=== PATIENT | female | born 1930 | race Caucasian/White ===

== ENCOUNTER 2019-06-04 11:51 | Inpatient (IN) | payer MEDICARE ==
[~2019-06-04] VITALS: Ht 165.1 cm; Wt 69.3 kg
[~2019-06-04 11:51] MED LIST: ASPI325 PO; ATEN25 PO; ATEN50 PO; Aspir 8181 MG PO; BETH25 PO; CALCAVITD PO; CALCIUM PO; CIPR250 PO; DICL75ER PO; FISH1000 PO; FURO40 PO; LOVA20 PO; OMEP20ER PO; OXYACE5T PO; POTA10T PO; POTCHL10ER PO; PROM25 PO; SULAR PO; VIT D PO
[2019-06-04 12:47] LABS: BASOPHILS ABSOLUTE AUTO 0.03 K/mm3 (0.00-0.23); BASOPHILS PERCENT AUTO 0 % (0-2); EOSINOPHILS ABSOLUTE AUTO 0.12 K/mm3 (0.00-0.68); EOSINOPHILS PERCENT AUTO 2 % (0-6); Hematocrit 33.1 % (33.0-51.0); Hemoglobin 11.2 g/dL (11.5-16.0); IMMATURE GRAN ABSOLUTE AUTO 0.05 K/mm3 (0.00-0.10); IMMATURE GRAN PERCENT AUTO 1 % (0-1); LYMPHOCYTES ABSOLUTE AUTO 1.51 K/mm3 (0.84-5.20); LYMPHOCYTES PERCENT AUTO 22 % (21-46); MONOCYTES ABSOLUTE AUTO 0.68 K/mm3 (0.16-1.47); MONOCYTES PERCENT AUTO 10 % (4-13); Mean Corpuscular HGB 33.6 pg (26.0-34.0); Mean Corpuscular HGB Conc 33.8 g/dL (31.5-36.5); Mean Corpuscular Volume 99 fL (80-100); Mean Platelet Volume 10.4 fL (9.1-12.4); NEUTROPHILS ABSOLUTE AUTO 4.57 K/mm3 (1.96-9.15); NEUTROPHILS PERCENT AUTO 66 % (41-73); Platelet Count 316 K/mm3 (150-400); RDW Coefficient Variation 11.4 % (11.7-14.2); RDW Standard Deviation 41.4 fL (35.1-46.3); Red Blood Cell Count 3.33 M/mm3 (3.80-5.20); White Blood Cell Count 6.96 K/mm3 (4.00-11.30)
[2019-06-04 12:53] LABS: Albumin, Blood 3.7 g/dL (3.4-5.0); Albumin/Globulin Ratio 1.1 (0.8-1.8); Bilirubin, Total 0.5 mg/dL (0.1-1.0); Bun/Creatinine Ratio 51.3 (12.0-20.0); Calcium, Blood 6.7 mg/dL (8.5-10.1); Creatinine, Blood 2.73 mg/dL (0.40-1.00); Globulin, Blood 3.5 g/dL (2.2-4.0); Total Protein, Blood 7.2 g/dL (6.4-8.2)
[2019-06-04] MEDS ORDERED: LOVA40 PO ×2 (14:38→18:45)
[2019-06-04] MEDS ORDERED: NIFE60ER PO (14:38)
[2019-06-04] MEDS ORDERED: Benazepril HCl20 MG PO (14:39)
[2019-06-04] MEDS ORDERED: METO5 PO (14:39)
[2019-06-04] MEDS ORDERED: Naproxen375 MG PO (15:59)
[2019-06-04] MEDS ORDERED: POTA10T PO (18:44)
[2019-06-04] MEDS ORDERED: FURO20 PO (18:45)
--- NOTE | 2019-06-05 03:28 | NUR ---
SHIFT SUMMARY: PT IS ALERT AND ORIENTED. PT IS CALM AND COOPERATIVE WITH CARE. PT CALLS APPROPRIATELY. PT IS A ONE PERSON ASSIST. FAMILY IN VISITING AT THE START OF THE NIGHT. PT DENIES PAIN, NAUSEA, VOMITING, AND SOB. FLUIDS RUNNING ORDERED. PT SLEPT MUCH OF THE NIGHT WHEN NOT DISTURBED. NO ACUTE CHANGES OR COMPLICATIONS. BED IN LOW POSITION, CALL LIGHT WITHIN REACH. WILL REPORT TO DAY NURSE.
[2019-06-05 04:40] LABS: BASOPHILS ABSOLUTE AUTO 0.02 K/mm3 (0.00-0.23); BASOPHILS PERCENT AUTO 0 % (0-2); EOSINOPHILS ABSOLUTE AUTO 0.09 K/mm3 (0.00-0.68); EOSINOPHILS PERCENT AUTO 2 % (0-6); Hematocrit 29.6 % (33.0-51.0); Hemoglobin 10.1 g/dL (11.5-16.0); IMMATURE GRAN ABSOLUTE AUTO 0.04 K/mm3 (0.00-0.10); IMMATURE GRAN PERCENT AUTO 1 % (0-1); LYMPHOCYTES ABSOLUTE AUTO 1.35 K/mm3 (0.84-5.20); LYMPHOCYTES PERCENT AUTO 23 % (21-46); MONOCYTES ABSOLUTE AUTO 0.64 K/mm3 (0.16-1.47); MONOCYTES PERCENT AUTO 11 % (4-13); Mean Corpuscular HGB 33.9 pg (26.0-34.0); Mean Corpuscular HGB Conc 34.1 g/dL (31.5-36.5); Mean Corpuscular Volume 99 fL (80-100); Mean Platelet Volume 10.2 fL (9.1-12.4); NEUTROPHILS ABSOLUTE AUTO 3.84 K/mm3 (1.96-9.15); NEUTROPHILS PERCENT AUTO 64 % (41-73); Platelet Count 258 K/mm3 (150-400); RDW Coefficient Variation 11.4 % (11.7-14.2); RDW Standard Deviation 41.2 fL (35.1-46.3); Red Blood Cell Count 2.98 M/mm3 (3.80-5.20); White Blood Cell Count 5.98 K/mm3 (4.00-11.30)
[2019-06-05 05:03] LABS: Magnesium, Blood 1.3 mg/dL (1.6-2.4)
[2019-06-05 05:07] LABS: Bilirubin, Total 0.3 mg/dL (0.1-1.0); Bun/Creatinine Ratio 60.8 (12.0-20.0); Calcium, Blood 6.5 mg/dL (8.5-10.1); Creatinine, Blood 1.94 mg/dL (0.40-1.00); Globulin, Blood 2.9 g/dL (2.2-4.0); Potassium, Blood 3.4 mmol/L (3.5-5.5); Total Protein, Blood 5.9 g/dL (6.4-8.2)
--- NOTE | 2019-06-05 16:55 | NUR ---
SHIFT SUMMARY PATIENT IS ALERT AND ORIENTED X3, SLIGHT CONFUSION AND VERY HARD OF HEARING. SHE AMBULATES WITH 1 ASST AND 4WW. SHE WALKED IN SCHNEIDER WITH FAMILY A LITTLE. SHE HAS NOT HAD ANY DIARRHEA OR A BM THIS SHIFT. SHE DENIES PAIN AND SOB. SHE STATES SHE HAS SOME MILD INTERMITTENT NAUSEA/LACK OF APPETITE. HER DAUGHTER MEG REAL CALLED ([phone], LIVES IN MO[place]) AND STATES THE BIGGEST CONCERN SHE SEES IS THAT SHE IS NOT EATING MUCH OR TAKING CARE OF HERSELF PROPERLY AND DID NOT TELL ANYONE ABOUT IT. SOCIAL SERVICE CONSULT PLACED BY DR FLORES. DTR INFORMED THAT A ELECTRIC ENGINE MECHANIC WOULD SEE PT TOMORROW AND THAT WOULD BE PASSED ALONG IN RN REPORT.
--- NOTE | 2019-06-06 04:37 | NUR ---
SHIFT SUMMARY- PT. SLEPT COMFORTABLY T/O THE NIGHT. NO APPARENT DISTRESS NOTED. CALLS APPROPRIATELY FOR ASSISTANCE. PT. IS A 1 ASSIST WITH WALKER. DENIED ANY PAIN OR DISCOMFORT T/O THE NIGHT. CALL LIGHT WITHIN REACH AND SIDE RAILS UP X2. WILL CONT TO MONITOR.
[2019-06-06 05:08] LABS: BASOPHILS ABSOLUTE AUTO 0.03 K/mm3 (0.00-0.23); BASOPHILS PERCENT AUTO 1 % (0-2); EOSINOPHILS ABSOLUTE AUTO 0.11 K/mm3 (0.00-0.68); EOSINOPHILS PERCENT AUTO 2 % (0-6); Hematocrit 29.5 % (33.0-51.0); Hemoglobin 10.1 g/dL (11.5-16.0); IMMATURE GRAN ABSOLUTE AUTO 0.03 K/mm3 (0.00-0.10); IMMATURE GRAN PERCENT AUTO 1 % (0-1); LYMPHOCYTES ABSOLUTE AUTO 1.54 K/mm3 (0.84-5.20); LYMPHOCYTES PERCENT AUTO 30 % (21-46); MONOCYTES ABSOLUTE AUTO 0.59 K/mm3 (0.16-1.47); MONOCYTES PERCENT AUTO 12 % (4-13); Mean Corpuscular HGB 33.7 pg (26.0-34.0); Mean Corpuscular HGB Conc 34.2 g/dL (31.5-36.5); Mean Corpuscular Volume 98 fL (80-100); Mean Platelet Volume 10.2 fL (9.1-12.4); NEUTROPHILS ABSOLUTE AUTO 2.77 K/mm3 (1.96-9.15); NEUTROPHILS PERCENT AUTO 55 % (41-73); Platelet Count 259 K/mm3 (150-400); RDW Coefficient Variation 11.5 % (11.7-14.2); RDW Standard Deviation 41.4 fL (35.1-46.3); White Blood Cell Count 5.07 K/mm3 (4.00-11.30)
[2019-06-06 05:22] LABS: Bun/Creatinine Ratio 60.4 (12.0-20.0); Calcium, Blood 6.9 mg/dL (8.5-10.1); Creatinine, Blood 1.49 mg/dL (0.40-1.00); Potassium, Blood 3.7 mmol/L (3.5-5.5)
[2019-06-06] MEDS ORDERED: Aspir 8181 MG PO (12:23)
[2019-06-06] MEDS ORDERED: Questran4 GM PO (12:24)
[2019-06-06] MEDS ORDERED: Dairy Relie9000 UNI1 PO (12:25)
--- NOTE | 2019-06-06 14:30 | NUR ---
DISCHARGE SUMMARY A/OX3. PT DC TO HOME VIA PERSONAL VEHICLE AND FAMILY MEMBER. ESCORTED VIA WC BY RN TO CAR. REVIEWED DC PAPERWORK WITH FAMILY AND PATIENT. GAVE TIME TO ASK QUESTIONS. MEDS FAXED TO PHARMACY. BELONGINGS SENT HOME WITH PATIENT. F/U APPOINTMENT SCHEDULED WITH DR. LEUNG ON . 06/09 @ 1573.
== END 2019-06-06 14:30 | disposition home or self-care (01) | DRG 683 ==
LOC: ER 11:51 → MEDS 16:53 → ENPENDDIS 06-06 10:17 → MEDS 06-06 14:30
PROVIDERS: Emergency Medicine; ADMIT Internal Medicine
DX: N17.0 Acute kidney failure with tubular necrosis (principal); E87.1 Hypo-osmolality and hyponatremia; E87.2 Acidosis; Z79.82 Long term (current) use of aspirin; N18.4 Chronic kidney disease, stage 4 (severe); E86.0 Dehydration; E83.42 Hypomagnesemia; H91.10 Presbycusis, unspecified ear; R19.7 Diarrhea, unspecified; I12.9 Hypertensive chronic kidney disease with stage 1 through stage 4 chronic kidney disease, or unspecified chronic kidney disease; F17.210 Nicotine dependence, cigarettes, uncomplicated
CPT/HCPCS: 36415; 80048; 80053; 82570; 83735; 84300; 85025; 96361; 96365; 99284-25; J0360; J2405; J3475; J7120

== ENCOUNTER 2019-06-15 13:50 | Emergency (ER) | payer MEDICARE ==
[~2019-06-15] VITALS: Ht 162.6 cm; Wt 68.0 kg
[~2019-06-15 13:50] MED LIST changes: +Benazepril HCl20 MG PO; +Dairy Relie9000 UNI1 PO; +FURO20 PO; +LOVA40 PO; +METO5 PO; +NIFE60ER PO; +Naproxen375 MG PO; +Questran4 GM PO
[2019-06-15 15:03] LABS: BASOPHILS ABSOLUTE AUTO 0.04 K/mm3 (0.00-0.23); BASOPHILS PERCENT AUTO 1 % (0-2); EOSINOPHILS ABSOLUTE AUTO 0.09 K/mm3 (0.00-0.68); EOSINOPHILS PERCENT AUTO 1 % (0-6); Hematocrit 36.2 % (33.0-51.0); Hemoglobin 11.8 g/dL (11.5-16.0); IMMATURE GRAN ABSOLUTE AUTO 0.03 K/mm3 (0.00-0.10); IMMATURE GRAN PERCENT AUTO 0 % (0-1); LYMPHOCYTES ABSOLUTE AUTO 1.76 K/mm3 (0.84-5.20); LYMPHOCYTES PERCENT AUTO 22 % (21-46); MONOCYTES ABSOLUTE AUTO 0.63 K/mm3 (0.16-1.47); MONOCYTES PERCENT AUTO 8 % (4-13); Mean Corpuscular HGB Conc 32.6 g/dL (31.5-36.5); Mean Corpuscular Volume 101 fL (80-100); Mean Platelet Volume 9.7 fL (9.1-12.4); NEUTROPHILS ABSOLUTE AUTO 5.31 K/mm3 (1.96-9.15); NEUTROPHILS PERCENT AUTO 68 % (41-73); Platelet Count 250 K/mm3 (150-400); RDW Coefficient Variation 11.9 % (11.7-14.2); RDW Standard Deviation 44.2 fL (35.1-46.3); Red Blood Cell Count 3.58 M/mm3 (3.80-5.20); White Blood Cell Count 7.86 K/mm3 (4.00-11.30)
[2019-06-15 15:23] LABS: Alanine Aminotransfer (ALT/SGP 31 U/L (12-78); Albumin, Blood 3.7 g/dL (3.4-5.0); Albumin/Globulin Ratio 1.2 (0.8-1.8); Alk Phos 80 U/L (50-136); Anion Gap 7 mmol/L (6-16); Aspartate Aminotrans (AST/SGOT 11 U/L (12-37); Bilirubin, Total 0.3 mg/dL (0.1-1.0); Blood Urea Nitrogen 43 mg/dL (8-24); Bun/Creatinine Ratio 33.1 (12.0-20.0); CO2, Blood 21 mmol/L (21-32); Calcium, Blood 8.8 mg/dL (8.5-10.1); Chloride, Blood 110 mmol/L (98-108); Globulin, Blood 3.1 g/dL (2.2-4.0); Glomerular Filtration Rate 41 (60-); Glucose, Blood 108 mg/dL (70-99); Potassium, Blood 4.4 mmol/L (3.5-5.5); Sodium, Blood 138 mmol/L (136-145); Total Protein, Blood 6.8 g/dL (6.4-8.2); Troponin I <0.015 ng/mL (0.000-0.040)
== END 2019-06-15 17:32 | disposition home or self-care (01) ==
LOC: ER 13:50
PROVIDERS: Physician Assistant
DX: I10 Essential (primary) hypertension (principal); Z88.0 Allergy status to penicillin; Z88.8 Allergy status to other drugs, medicaments and biological substances; Z91.048 Other nonmedicinal substance allergy status; Z79.899 Other long term (current) drug therapy; Z79.82 Long term (current) use of aspirin; Z87.891 Personal history of nicotine dependence
CPT/HCPCS: 36415; 71046; 80053; 84484; 85025; 93005; 93010; 99284-25

== ENCOUNTER 2019-07-27 09:57 | Inpatient (IN) | payer MEDICARE ==
[~2019-07-27] VITALS: Ht 167.6 cm; Wt 73.8 kg
[2019-07-27 11:46] LABS: BASOPHILS ABSOLUTE AUTO 0.05 K/mm3 (0.00-0.23); BASOPHILS PERCENT AUTO 1 % (0-2); EOSINOPHILS ABSOLUTE AUTO 0.01 K/mm3 (0.00-0.68); EOSINOPHILS PERCENT AUTO 0 % (0-6); Hematocrit 33.7 % (33.0-51.0); Hemoglobin 10.7 g/dL (11.5-16.0); IMMATURE GRAN ABSOLUTE AUTO 0.04 K/mm3 (0.00-0.10); IMMATURE GRAN PERCENT AUTO 1 % (0-1); LYMPHOCYTES ABSOLUTE AUTO 0.82 K/mm3 (0.84-5.20); LYMPHOCYTES PERCENT AUTO 9 % (21-46); MONOCYTES ABSOLUTE AUTO 0.55 K/mm3 (0.16-1.47); MONOCYTES PERCENT AUTO 6 % (4-13); Mean Corpuscular HGB 34.2 pg (26.0-34.0); Mean Corpuscular HGB Conc 31.8 g/dL (31.5-36.5); Mean Corpuscular Volume 108 fL (80-100); Mean Platelet Volume 10.3 fL (9.1-12.4); NEUTROPHILS ABSOLUTE AUTO 7.31 K/mm3 (1.96-9.15); NEUTROPHILS PERCENT AUTO 83 % (41-73); Platelet Count 260 K/mm3 (150-400); RDW Coefficient Variation 13.5 % (11.7-14.2); RDW Standard Deviation 53.5 fL (35.1-46.3); Red Blood Cell Count 3.13 M/mm3 (3.80-5.20); White Blood Cell Count 8.78 K/mm3 (4.00-11.30)
[2019-07-27 12:04] LABS: Albumin, Blood 3.2 g/dL (3.4-5.0); Albumin/Globulin Ratio 0.9 (0.8-1.8); Bilirubin, Total 0.3 mg/dL (0.1-1.0); Bun/Creatinine Ratio 18.8 (12.0-20.0); Calcium, Blood 8.5 mg/dL (8.5-10.1); Creatinine, Blood 1.17 mg/dL (0.40-1.00); Globulin, Blood 3.4 g/dL (2.2-4.0); Potassium, Blood 4.9 mmol/L (3.5-5.5); Total Protein, Blood 6.6 g/dL (6.4-8.2)
[2019-07-27 12:08] LABS: Troponin I 0.65 ng/mL (0.000-0.040)
[2019-07-27] MEDS ORDERED: DONE5 PO (12:29)
[2019-07-27] MEDS ORDERED: PRINIVIL5 MG PO (12:29)
[2019-07-27] MEDS ORDERED: OMEPRAZOLE20 MG PO (12:30)
[2019-07-27] MEDS ORDERED: METO5 PO (12:30)
[2019-07-27] MEDS ORDERED: CHOLP PO (13:18)
[2019-07-27] MEDS ORDERED: LACTOSE FAS 9000 UNIT PO (13:19)
--- NOTE | 2019-07-27 19:31 | NUR ---
The pt voided in the bathroom, but unfortunately missed the collection device, and was also incontinent on the floor on her way. Bedside commode placed for pt easier use and accuracy for urine output.
[2019-07-27 21:39] LABS: Bun/Creatinine Ratio 19.5 (12.0-20.0); Calcium, Blood 8.1 mg/dL (8.5-10.1); Creatinine, Blood 1.33 mg/dL (0.40-1.00)
[2019-07-27 21:41] LABS: Thyroid Stimulating Hormone 1.7 uIU/mL (0.360-4.800)
[2019-07-28 07:07] LABS: BASOPHILS ABSOLUTE AUTO 0.03 K/mm3 (0.00-0.23); BASOPHILS PERCENT AUTO 0 % (0-2); EOSINOPHILS PERCENT AUTO 1 % (0-6); Hematocrit 30.5 % (33.0-51.0); Hemoglobin 9.8 g/dL (11.5-16.0); IMMATURE GRAN ABSOLUTE AUTO 0.05 K/mm3 (0.00-0.10); IMMATURE GRAN PERCENT AUTO 1 % (0-1); LYMPHOCYTES ABSOLUTE AUTO 1.35 K/mm3 (0.84-5.20); LYMPHOCYTES PERCENT AUTO 19 % (21-46); MONOCYTES ABSOLUTE AUTO 0.69 K/mm3 (0.16-1.47); MONOCYTES PERCENT AUTO 10 % (4-13); Mean Corpuscular HGB 33.3 pg (26.0-34.0); Mean Corpuscular HGB Conc 32.1 g/dL (31.5-36.5); Mean Platelet Volume 10.3 fL (9.1-12.4); NEUTROPHILS ABSOLUTE AUTO 5.02 K/mm3 (1.96-9.15); NEUTROPHILS PERCENT AUTO 69 % (41-73); Platelet Count 258 K/mm3 (150-400); RDW Coefficient Variation 13.6 % (11.7-14.2); Red Blood Cell Count 2.94 M/mm3 (3.80-5.20); White Blood Cell Count 7.24 K/mm3 (4.00-11.30)
[2019-07-28 07:08] LABS: Mean Corpuscular Volume 104 fL (80-100)
--- NOTE | 2019-07-28 07:27 | NUR ---
a+o, [place] but cheerful ad cooperative, blood pressure being controlled with medication and monitored by cardio, call ligh in reach, able to make needs known, 7L via high flow, hip pain controled with medication and nonpharmalogical interventions
[2019-07-28 07:28] LABS: Cholesterol 152 mg/dL (50-200); HDL Cholesterol 51 mg/dL (>39); LDL/HDL RATIO 1.4; Low Density Lipoprotein Chol 73 mg/dL (0-110); Triglycerides 140 mg/dL (30-160); Very Low Density Lipoprot Chol 28 mg/dL (6-32)
[2019-07-28 07:31] LABS: Albumin, Blood 2.8 g/dL (3.4-5.0); Albumin/Globulin Ratio 0.9 (0.8-1.8); Bilirubin, Total 0.4 mg/dL (0.1-1.0); Bun/Creatinine Ratio 20.3 (12.0-20.0); Calcium, Blood 8.5 mg/dL (8.5-10.1); Creatinine, Blood 1.18 mg/dL (0.40-1.00); Magnesium, Blood 2.2 mg/dL (1.6-2.4); Potassium, Blood 4.2 mmol/L (3.5-5.5); Total Protein, Blood 5.8 g/dL (6.4-8.2)
--- NOTE | 2019-07-28 08:32 | NUR ---
PERMISSION FOR CARE PATIENT GAVE STUDENT PERMISSION TO PROVIDE CARE ON 07/28/19.
--- NOTE | 2019-07-28 14:33 | NUR ---
Spiritual care visit conducted. Patient is sitting up in bed and resting. Patient easily awakens to the sound of her name. I Pateint tells me about her medical issues, her family and her move into a care facility. Patient also shares about her daughter coming in from [facility] [place]. today. She explains about her [employer] background and the importance her jackie is to her in times like these. I listen empathically, normalize patient's experience and provide prayer. Patient's son Beny walks in as I am praying. I will continue to remain available to patient and family.
--- NOTE | 2019-07-28 14:49 | NUR ---
Assisted to bedside commode to void, then to chair. Pt c/o hip, lower legs, and back pain. Encouraged pt to get up out of bed as tolerated to reduce pain from immobility and lower risks associated with inactivity. Call light within reach. Tylenol give for pain, lisinopril additional dose give now as ordered.
--- NOTE | 2019-07-28 19:35 | NUR ---
SHIFT SUMMARY ASSUMED CARE OF PATIENT AT 0700, PT AWAKE AND ALERT IN BED IN NO OBVIOUS DISTRESS. MEDICATED AND TREATED PT PER MD ORDER AND UNIT PROTOCOL, ASSESSED AND TREATED PT'S PAIN WITH REPOSITIONING AND PRN MEDICATION. PT WAS RELUCTANT TO DO SO, BUT MADE IT KNOWN THAT SHE COULD NOT TOLERATE THE COMPRESSION STOCKINGS ORDERED FOR HER. THEY WERE REMOVED AT AROUND 1800. PT WAS EDUCATED THAT MEDICATION FOR PAIN RELIEF WAS APPROPRIATE AND ACCEPTABLE. PT'S BLOOD PRESSURE AT NOON WAS ABOVE MD PARAMETERS AND THEREBY ATTENDED TO WITH PRN MEDICATION, AFTER WHICH BP REMAINED W/IN NORMAL LIMITS FOR THIS PATIENT. O2 SATURATION WAS MAINTAINED AT OR ABOVE 90%, AND PATIENT REMAINED PLEASANTLY APPRECIATIVE OF THE CARE SHE RECEIVED IN THIS UNIT. CARE AND REPORT GIVEN TO ONCOMING SHIFT AT 1900, PT AWAKE IN BED WITH NO ISSUES, BED LOCKED AND LOW, CALL LIGHT W/IN REACH, FAMILY MEMBER PRESENT.
--- NOTE | 2019-07-29 02:56 | NUR ---
shared bsr with pt and staff, medicated and treated pt as prescribed, trouble communicating r/[place], cooperative and appreciative of care provided, medicated successfully for hip/leg pain, assisted pt to use bsc, close monitoring of i/o contiues
[2019-07-29 04:23] LABS: Bun/Creatinine Ratio 23.9 (12.0-20.0); Calcium, Blood 8.3 mg/dL (8.5-10.1); Creatinine, Blood 1.34 mg/dL (0.40-1.00); Potassium, Blood 4.5 mmol/L (3.5-5.5)
--- NOTE | 2019-07-29 05:13 | NUR ---
high bp noted, medicated as prescribed, denied symptoms, post mediation 155/53 on R arm while lying down
--- NOTE | 2019-07-29 06:18 | NUR ---
a+o, call light in reach, no significant medical change noted during shift, bed locked in low position, saline locked, 7L via hfnc, will continue to monitor and treat until bsr with staff and pt
--- NOTE | 2019-07-29 09:17 | NUR ---
AWAITING MEDS FROM PHARMACY
--- NOTE | 2019-07-29 10:29 | NUR ---
CARDIOLOGY CONSULT WAS PLACED AND CALLED IN BY PROVIDER, DR TAYLOR WAS IN TO SEE PT THIS AM
--- NOTE | 2019-07-29 10:50 | NUR ---
CABIN CLEANING SUPERVISOR PAGED TO UPDATE ON BP
--- NOTE | 2019-07-29 13:32 | NUR ---
PHARMACY CALLED AGAIN FOR MEDCIATIONS
--- NOTE | 2019-07-29 14:52 | NUR ---
CALL TO DR CHRISTOPHER THAT PT HAS MAINTAINED SPO2 AT 93% FOR 1 HOUR WITH O2 @ 2L. NEW ORDERS OBTAINED FOR TRANSFER TO MEDICAL FLOOR
--- NOTE | 2019-07-29 18:42 | NUR ---
REPORT TO MEDICAL FLOOR
--- NOTE | 2019-07-29 19:32 | NUR ---
Pt transferred from PCU and was observed in room at 1910. Went to bathroom with use of walker, assisted to bed. Oriented to call light and fall precautions. Placed on bed alarm as per shift report, pt was a little forgetful. Will continue to assess. Call light in reach.
[2019-07-30 05:50] LABS: Bun/Creatinine Ratio 28.6 (12.0-20.0); Calcium, Blood 8.7 mg/dL (8.5-10.1); Creatinine, Blood 1.4 mg/dL (0.40-1.00); Potassium, Blood 4.7 mmol/L (3.5-5.5)
--- NOTE | 2019-07-30 05:55 | NUR ---
Received pt from PCU last PM. Has been resting wuietly with occasional episodes of assistance to the restoom to void. Denies pain and distress. Call light in reach
--- NOTE | 2019-07-30 10:30 | NUR ---
ROOM AIR TRIAL: DISCUSSED O2 VIA NC WITH DR. CHRISTOPHER. ATTEMPTED A ROOM AIR TRIAL WITH THE PATIENT. PATIENT 02 SATURATIONS WERE 84%. NOTIFIED DR. CHRISTOPHER. NEW ORDER TO CANCEL DISCHARGE.
--- NOTE | 2019-07-30 11:44 | NUR ---
ELEVATED BLOOD PRESSURE: NOTIFIED DR. CHRISTOPHER OF CONTINUED ELEVATION OF BP (SBP 171). NEW ORDERS HAVE BEEN PLACED. VERIFIED WITH DR. CHRISTOPHER THAT HE WOULD LIKE THE PATIENT TO RECEIVE THE FIRST DOSE OF LASIX THIS MORNING.
--- NOTE | 2019-07-30 18:26 | NUR ---
Shift Summary Received report from MARKELL Gonzalez and assumed care around 1600. Pt has been pleasant, very [place] and does wear hearing aids in left ear. Continent, SBA c FWW and calls appropriately for needs. BP 184/57, medicated with PRN meds per EMAR, down to 150/53. Up in chair for dinner. No other complaints since this RN assumed care.
--- NOTE | 2019-07-31 04:27 | NUR ---
SHIFT SUMMARY AOX4. BED ALARM FOR HX OF DEMENTIA, PT CALLED APPROPRIATELY. LS DIM, SOB W/ACTIVITY, 2L O2 OVERNIGHT. NAUSEA ON AND OFF. PAIN 7/10 IN BACK, TYLENOL GIVEN @ 2310. VSS. SBA W/WALKER. L AC IV IS SL. PLAN IS TO DC IF PT CAN TOLERATE BEING ON RA. PT FROM [facility].
[2019-07-31 05:04] LABS: Bun/Creatinine Ratio 30.4 (12.0-20.0); Calcium, Blood 8.3 mg/dL (8.5-10.1); Creatinine, Blood 1.38 mg/dL (0.40-1.00); Potassium, Blood 4.7 mmol/L (3.5-5.5)
--- NOTE | 2019-07-31 18:04 | NUR ---
SHIFT SUMMARY PATIENT PLEASANT, ALERT AND ORIENTED BUT VERY HARD OF HEARING. SHE IS STANDBY ASSIST TO THE BATHROOM, AND MOVES FAIRLY SLOW. STILL REQUIRING 2L O2 VIA NC IN ORDER TO KEEP HER SATS ABOVE 90. NO ACUTE CONCERNS FROM THE PATIENT AND FAMILY WANTS TO BE NOTIFIED OF DISCHARGE PLAN TOMORROW. SHE CURRENTLY LIVES AT [facility] AND THEY ARE AWARE SHE NEEDS A RE-EVALUATION PER FAMILY PRIOR TO HER DISCHARGE TO RETURN TO [facility].
--- NOTE | 2019-08-01 03:18 | NUR ---
SHIFT SUMMARY AOX4, INTERMITTENT CONFUSION. LS CLEAR, DENIES SOB, STILL ON 2L, SATS BETWEEN 90-95%. NO C/O NAUSEA OR PAIN. NO SKIN PROBLEMS. SBA AND WALKER TO BATHROOM. BED ALARM. L AC IV IS SL. TYLENOL GIVEN @ 2029. PLAN TO DC TODAY BACK TO [facility].
[2019-08-01] MEDS ORDERED: TORSE20 PO (14:08)
--- NOTE | 2019-08-01 14:58 | NUR ---
1415 LEFT MESSAGE WITH PT'S SON ERIC, NO ANSWER. 1445 SPOKE WITH ERIC ON PHONE, HE REPORTED THAT HE WOULD BE HERE WITHIN THE HOUR.
--- NOTE | 2019-08-01 15:58 | NUR ---
1557 PT DISCHARGED TO [facility] VIA PERSONAL VEHICLE ACCOMAMPANIED AND DRIVEN BY SON. PT ESCORTED TO ENTRANCE VIA W/C BY DIRECTOR OF HEAD START. IV REMOVED. MED REC AND ORDERS FAXED TO [facility] PER THEIR STAFF REQUEST. PERSONAL WALKER WITH PT. PORTABLE O2 1L NC PLACED ON PT. NO NEW CHANGES OR CONCERNS.
== END 2019-08-01 15:56 | disposition home or self-care (01) | DRG 291 ==
LOC: ER 09:57 → PCU 13:26 → MEDS 07-29 19:10 → ENPENDDIS 08-01 10:15 → MEDS 08-01 15:56
PROVIDERS: Emergency Medicine; Internal Medicine; Internal Medicine Cardiovascular Disease; Nurse Practitioner Acute Care; ADMIT Internal Medicine
DX: I13.0 Hypertensive heart and chronic kidney disease with heart failure and stage 1 through stage 4 chronic kidney disease, or unspecified chronic kidney disease (principal); J96.01 Acute respiratory failure with hypoxia; I50.33 Acute on chronic diastolic (congestive) heart failure; I16.1 Hypertensive emergency; Z79.82 Long term (current) use of aspirin; Z87.891 Personal history of nicotine dependence; N18.3 Chronic kidney disease, stage 3 (moderate); M19.90 Unspecified osteoarthritis, unspecified site; Z66 Do not resuscitate; F03.90 Unspecified dementia, unspecified severity, without behavioral disturbance, psychotic disturbance, mood disturbance, and anxiety; I65.29 Occlusion and stenosis of unspecified carotid artery; H91.90 Unspecified hearing loss, unspecified ear; E78.5 Hyperlipidemia, unspecified; I27.20 Pulmonary hypertension, unspecified; I35.0 Nonrheumatic aortic (valve) stenosis; J43.9 Emphysema, unspecified; D63.1 Anemia in chronic kidney disease
CPT/HCPCS: 36415; 71045; 71046; 80048; 80053; 80061; 83735; 83880; 84145; 84443; 84484; 85025; 93005; 93010; 93306; 94640; 94760; 94761; 96374; 99285-25; A9270; J0360; J1644; J1940; J3475; J7050

== ENCOUNTER → 2021-03-12 | Outpatient (CLI) | payer MEDICARE ==
[~2021-03-12] MED LIST changes: +ACET325 PO; +CEFP200 PO; +CHOLP PO; +DIPATR PO; +DONE5 PO; +LACTOSE FAS 9000 UNIT PO; +OMEPRAZOLE20 MG PO; +PRINIVIL5 MG PO; +ROSU10TA PO; +TORSE20 PO; +TUMS500 MG PO
== END | disposition home or self-care (01) ==
LOC: LAB SHORT 12:26
DX: R30.9 Painful micturition, unspecified (principal)
CPT/HCPCS: 87077; 87086; 87186

== ENCOUNTER 2021-08-31 14:14 | Inpatient (IN) | payer MEDICARE ==
[~2021-08-31] VITALS: Ht 167.6 cm; Wt 63.5 kg
[~2021-08-31 14:14] MED LIST changes: +BUSPIRONE HCL5 M5 PO; +LACTASE FAS9000 UNI1 PO; -LACTOSE FAS 9000 UNIT PO; +LISI20 PO; +MIRALAX17 GM PO; -PRINIVIL5 MG PO; +ROSUVASTATIN CA10 MG PO; +TRAM50 PO
[2021-08-31 14:40] LABS: BASOPHILS ABSOLUTE AUTO 0.03 K/mm3 (0.00-0.23); BASOPHILS PERCENT AUTO 0 % (0-2); EOSINOPHILS ABSOLUTE AUTO 0.03 K/mm3 (0.00-0.68); EOSINOPHILS PERCENT AUTO 0 % (0-6); Hematocrit 39.2 % (33.0-51.0); Hemoglobin 12.9 g/dL (11.5-16.0); IMMATURE GRAN ABSOLUTE AUTO 0.09 K/mm3 (0.00-0.10); IMMATURE GRAN PERCENT AUTO 1 % (0-1); LYMPHOCYTES ABSOLUTE AUTO 1.33 K/mm3 (0.84-5.20); LYMPHOCYTES PERCENT AUTO 17 % (21-46); MONOCYTES ABSOLUTE AUTO 0.74 K/mm3 (0.16-1.47); MONOCYTES PERCENT AUTO 10 % (4-13); Mean Corpuscular HGB 33.3 pg (26.0-34.0); Mean Corpuscular HGB Conc 32.9 g/dL (31.5-36.5); Mean Corpuscular Volume 101 fL (80-100); Mean Platelet Volume 9.6 fL (9.1-12.4); NEUTROPHILS ABSOLUTE AUTO 5.54 K/mm3 (1.96-9.15); NEUTROPHILS PERCENT AUTO 71 % (41-73); Platelet Count 297 K/mm3 (150-400); RDW Coefficient Variation 14.6 % (11.7-14.2); RDW Standard Deviation 54.9 fL (35.1-46.3); Red Blood Cell Count 3.87 M/mm3 (3.80-5.20); White Blood Cell Count 7.76 K/mm3 (4.00-11.30)
[2021-08-31 15:20] LABS: Source, Urine Catheter
[2021-08-31 15:25] LABS: Albumin, Blood 3.2 g/dL (3.4-5.0); Albumin/Globulin Ratio 1.1 (0.8-1.8); Bilirubin, Total 0.3 mg/dL (0.1-1.0); Bun/Creatinine Ratio 31.6 (12.0-20.0); Calcium, Blood 8.6 mg/dL (8.5-10.1); Potassium, Blood 4.2 mmol/L (3.5-5.5); Total Protein, Blood 6.2 g/dL (6.4-8.2)
[2021-08-31 15:31] LABS: Appearance, Urine Cloudy (Clear); Blood, Urine 1+ (Neg); Color, Urine Yellow (P-Yellow); Glucose Qualitative, Urine Neg (Neg); Ketones, Urine Neg (Neg); Leukocyte Esterase, Urine 3+ (Neg); Nitrite, Urine Neg (Neg); Protein, Urine 2+ (Neg); Specific Gravity, Urine 1.025 (1.003-1.022); Urobilinogen, Urine NORM (Normal)
[2021-08-31 15:41] LABS: Bilirubin, Urine 1+ (Neg)
[2021-08-31 15:45] LABS: Red Blood Cells, Urine 0-2 /hpf (0-2); Squamous Epithelial Cells Few /hpf (Few); White Blood Cells, Urine 50-100 /hpf (0-5)
[2021-08-31 15:46] LABS: Bacteria Many /hpf; Renal Epithelial Many /hpf (0-Rare); Transitional Epithelial Cells Few /hpf (0-Rare)
[2021-08-31] MEDS ORDERED: METO25ER PO (20:26)
[2021-08-31] MEDS ORDERED: ABILIFY MYCITE5 M2 PO (20:26)
[2021-08-31] MEDS ORDERED: LOPE2C PO (20:27)
[2021-08-31] MEDS ORDERED: SERT25 PO (20:48)
[2021-09-01 04:56] LABS: BASOPHILS ABSOLUTE AUTO 0.03 K/mm3 (0.00-0.23); BASOPHILS PERCENT AUTO 0 % (0-2); EOSINOPHILS ABSOLUTE AUTO 0.08 K/mm3 (0.00-0.68); EOSINOPHILS PERCENT AUTO 1 % (0-6); Hematocrit 34.2 % (33.0-51.0); Hemoglobin 10.8 g/dL (11.5-16.0); IMMATURE GRAN ABSOLUTE AUTO 0.05 K/mm3 (0.00-0.10); IMMATURE GRAN PERCENT AUTO 1 % (0-1); LYMPHOCYTES ABSOLUTE AUTO 1.07 K/mm3 (0.84-5.20); LYMPHOCYTES PERCENT AUTO 15 % (21-46); MONOCYTES ABSOLUTE AUTO 0.66 K/mm3 (0.16-1.47); MONOCYTES PERCENT AUTO 9 % (4-13); Mean Corpuscular HGB 32.7 pg (26.0-34.0); Mean Corpuscular HGB Conc 31.6 g/dL (31.5-36.5); Mean Corpuscular Volume 104 fL (80-100); Mean Platelet Volume 9.8 fL (9.1-12.4); NEUTROPHILS ABSOLUTE AUTO 5.38 K/mm3 (1.96-9.15); NEUTROPHILS PERCENT AUTO 74 % (41-73); Platelet Count 244 K/mm3 (150-400); RDW Coefficient Variation 14.6 % (11.7-14.2); RDW Standard Deviation 56.5 fL (35.1-46.3); White Blood Cell Count 7.27 K/mm3 (4.00-11.30)
[2021-09-01 05:33] LABS: Magnesium, Blood 1.9 mg/dL (1.6-2.4)
--- NOTE | 2021-09-01 05:34 | NUR ---
SHIFT SUMMARY PT ARRIVED ON THE UNIT AT 2054 AND WAS ASLEEP SNORING. PT WAS ABLE TO WAKE UP PRIOR TO TRANSFERRING BEDS. PT VERY DROWSY AND RESPONDS TO NAME, SO AOX1 UNABLE TO FULLY ASSESS. PT NPO AND AWAITING GI PANEL TO R/O C.DIFF, NO BM THIS SHIFT. PT CURRENTLY ASLEEP AND SNORING AT THE MOMENT, WILL CONTINUE TO MONITOR UNTIL REPORT IS GIVEN.
[2021-09-01 05:36] LABS: Albumin, Blood 2.5 g/dL (3.4-5.0); Anion Gap 12 mmol/L (6-16); Blood Urea Nitrogen 151 mg/dL (8-24); Bun/Creatinine Ratio 37.8 (12.0-20.0); CO2, Blood 15 mmol/L (21-32); Calcium, Blood 7.8 mg/dL (8.5-10.1); Chloride, Blood 113 mmol/L (98-108); Creatinine, Blood 3.99 mg/dL (0.40-1.00); Glomerular Filtration Rate 11 (60-); Glucose, Blood 78 mg/dL (70-99); Potassium, Blood 4.2 mmol/L (3.5-5.5); Sodium, Blood 140 mmol/L (136-145)
[2021-09-01 05:39] LABS: Phosphorus, Blood >9.0 mg/dL (2.5-4.9)
[2021-09-01] MEDS ORDERED: LORCET 5-325 M1 EACH PO (14:42)
[2021-09-01] MEDS ORDERED: BISA10S PR (14:56)
[2021-09-01] MEDS ORDERED: DOCU100 PO (14:57)
[2021-09-01] MEDS ORDERED: Norco 5-325 Ta1 EACH PO (14:58)
[2021-09-01] MEDS ORDERED: MELATONIN TR 51 EAC1 PO (14:59)
[2021-09-01] MEDS ORDERED: DULCOLAX400 MG/5 M PO (15:01)
[2021-09-01] MEDS ORDERED: Fleet Enema132 ML PR (15:02)
--- NOTE | 2021-09-01 16:17 | NUR ---
CODE STATUS CHANGED TO DNR, ORDER VERIFIED WITH HUMAIRA RN AND PURPLE WRIST BAND PLACED ON RIGHT WRIST
--- NOTE | 2021-09-01 17:57 | NUR ---
MESSAGES LEFT FOR TARAH CABELLO, CONVEYOR BELT OPERATOR, AND TIFFANIE JOLLY, [facility]. PT'S SON ERIC ([phone]) IS REQUESTING PHONE CALLS REGARDING TRANSITIONING TO [facility] OTHER LIVING FACILITIES
[2021-09-02 04:42] LABS: BASOPHILS ABSOLUTE AUTO 0.02 K/mm3 (0.00-0.23); BASOPHILS PERCENT AUTO 0 % (0-2); EOSINOPHILS ABSOLUTE AUTO 0.03 K/mm3 (0.00-0.68); EOSINOPHILS PERCENT AUTO 0 % (0-6); Hematocrit 30.5 % (33.0-51.0); Hemoglobin 10.2 g/dL (11.5-16.0); IMMATURE GRAN ABSOLUTE AUTO 0.05 K/mm3 (0.00-0.10); IMMATURE GRAN PERCENT AUTO 1 % (0-1); LYMPHOCYTES ABSOLUTE AUTO 0.65 K/mm3 (0.84-5.20); LYMPHOCYTES PERCENT AUTO 9 % (21-46); MONOCYTES ABSOLUTE AUTO 0.81 K/mm3 (0.16-1.47); MONOCYTES PERCENT AUTO 11 % (4-13); Mean Corpuscular HGB Conc 33.4 g/dL (31.5-36.5); Mean Platelet Volume 10.2 fL (9.1-12.4); NEUTROPHILS ABSOLUTE AUTO 5.88 K/mm3 (1.96-9.15); NEUTROPHILS PERCENT AUTO 79 % (41-73); Platelet Count 229 K/mm3 (150-400); RDW Coefficient Variation 14.4 % (11.7-14.2); RDW Standard Deviation 51.8 fL (35.1-46.3); Red Blood Cell Count 3.09 M/mm3 (3.80-5.20); White Blood Cell Count 7.44 K/mm3 (4.00-11.30)
[2021-09-02 04:43] LABS: Mean Corpuscular Volume 99 fL (80-100)
[2021-09-02 05:47] LABS: Albumin, Blood 2.2 g/dL (3.4-5.0); Anion Gap 10 mmol/L (6-16); Blood Urea Nitrogen 123 mg/dL (8-24); Bun/Creatinine Ratio 62.4 (12.0-20.0); CO2, Blood 23 mmol/L (21-32); Calcium, Blood 7.2 mg/dL (8.5-10.1); Chloride, Blood 108 mmol/L (98-108); Creatinine, Blood 1.97 mg/dL (0.40-1.00); Glomerular Filtration Rate 24 (60-); Glucose, Blood 130 mg/dL (70-99); Magnesium, Blood 1.5 mg/dL (1.6-2.4); Potassium, Blood 3.2 mmol/L (3.5-5.5); Sodium, Blood 141 mmol/L (136-145)
[2021-09-02 05:54] LABS: Phosphorus, Blood 4.6 mg/dL (2.5-4.9)
--- NOTE | 2021-09-02 06:05 | NUR ---
SHIFT SUMMARY PT AOX2 AT TIMES AND TRIBE BUT ABLE TO ANSWER SHORT SENTENCES THIS SHIFT. PT HAS REMAINED CONTINENT BUT DOES NOT REMEMBER HOW TO USE THE CALL LIGHT. PT VERY PLEASANT AND IN GOOD SPIRITS THIS SHIFT. PT HAS RESTED SOME THIS SHIFT ON AND OFF WITH LOUD SNORING HEARD WITH EACH ROUND. PT CURRENTLY ASLEEP AND MEDICATIED PER EMAR THIS SHIFT. THIS NURSE WILL CONTINUE TO MONITOR UNTIL REPORT IS GIVEN.
--- NOTE | 2021-09-02 17:50 | NUR ---
SHIFT SUMMARY PT HAS BEEN SLEEPING A LOT OF THE SHIF. PT CONFUSED AND HARD OF HEARING. PT IS PLEASANT AND COOPERATIVE WITH CARE. PT STARTED HAVING MULITPLE LOOSE STOOLS THIS AFTERNOON AND WAITING TO GET A SAMPLE. PT IS PAINFUL WITH MOVEMENT BUT ABLE TO GET UP TO BSC WITH ASSISTANCE. IVF INFUSING WITHOUT DIFFICULTY. NO ACUTE CHANGES AT THIS TIME. WILL CONITNUE TO MONITOR AND REPORT TO ONCOMING RN. CHAIR ALARM ON FOR SAFETY.
[2021-09-02 22:38] LABS: Adenovirus F 40/41 Not Detected (NOT DETECT); Astrovirus Not Detected (NOT DETECT); Campylobacter Sp Not Detected (NOT DETECT); Cryptosporidium Not Detected (NOT DETECT); Cyclospora Cayetanensis Not Detected (NOT DETECT); E. Coli O157 Not Detected (NOT DETECT); Entamoeba Histolytica Not Detected (NOT DETECT); Enteroaggregative E. coli-EAEC Not Detected (NOT DETECT); Enteropathogenic E. coli-EPEC Not Detected (NOT DETECT); Enterotoxigenic E. coli-ETEC Not Detected (NOT DETECT); Giardia Lamblia Not Detected (NOT DETECT); Norovirus GI/GII Not Detected (NOT DETECT); Plesiomonas Shigelloides Not Detected (NOT DETECT); Salmonella Sp Not Detected (NOT DETECT); Shiga Toxin-prod E. coli-STEC Not Detected (NOT DETECT); Shigella/Enteroin E. coli-EIEC Not Detected (NOT DETECT); Vibrio Cholerae Not Detected (NOT DETECT); Vibrio Sp Not Detected (NOT DETECT); Yersinia Enterocolitica Not Detected (NOT DETECT)
[2021-09-02 22:39] LABS: Rotavirus A Not Detected (NOT DETECT); Sapovirus Not Detected (NOT DETECT)
--- NOTE | 2021-09-03 04:36 | NUR ---
SHIFT SUMMARY PT AOX2-3 AT TIMES WITH SOME CONFUSION BUT MOSTLY [place]. PT VERY PLEASANT AND COOPERATIVE WITH CARE. PT RESTED SOME BUT NOT MUCH D/T INCREASED PAIN AND DISCOMFORT. PT MEDICATED PER EMAR AND REMAINED DRY WITH ON BM THIS SHIFT. PT CURRENTLY WATCHING TV AND DENIES ANY NEEDS AT THE MOMENT. WILL CONTINUE TO MONITOR UNTIL REPORT IS GIVEN.
[2021-09-03 08:04] LABS: Albumin, Blood 2.1 g/dL (3.4-5.0); Anion Gap 6 mmol/L (6-16); Blood Urea Nitrogen 88 mg/dL (8-24); Bun/Creatinine Ratio 70.4 (12.0-20.0); CO2, Blood 27 mmol/L (21-32); Calcium, Blood 7.4 mg/dL (8.5-10.1); Chloride, Blood 106 mmol/L (98-108); Creatinine, Blood 1.25 mg/dL (0.40-1.00); Glomerular Filtration Rate 40 (60-); Glucose, Blood 134 mg/dL (70-99); Magnesium, Blood 1.8 mg/dL (1.6-2.4); Potassium, Blood 3.1 mmol/L (3.5-5.5); Sodium, Blood 139 mmol/L (136-145)
--- NOTE | 2021-09-03 14:42 | NUR ---
Spoke with [facility] Straw Hat Brim Cutter Operator Dr Hernandez. Dr Hernandez reports [facility] Andreia was not contacted by son or staff at [facility] when Pt came to the hospital. Spoke with Dr Hsieh and discussed case. Pt resting in bed upon arrival. Pt is pleasantly confused A&OX1/2. Pt is alert to self and knows she is in a hospital but does not know name of facility or town. Pt does not know reason for stay or current year. Pt denies pain and dyspnea. Pt reports no concerns at this time. Spoke with Pt's primary RN Sarah and discussed case. Called and spoke with Pt's son Beny. Engaged in therapeutic discussion regarding goals of care. Offered therapeutic listening as Beny reports knowing Pt's goals are hospice services but had concerns with how Pt was being cared for at facility. He reports finding Pt covered in feces, shirt on upside down, with no pants on. He reports sending Pt to the hospital due to safety concerns. Beny reports goals are still hospice services once he finds suitable placement for Pt. He reports wanting to temporarily revoke hospice until D/C from hospital. Continued therapeutic listening and answered questions. Spoke with Draw Furnace Tender Bao and reported family's goals. Spoke with Dr Hernandez and reported wishes to temporarily revoke hospice until more suitable placement can be found. Palliative Care will remain available.
--- NOTE | 2021-09-03 18:48 | NUR ---
SHIFT SUMMARY PATIENT IS AAOX2 ONLY. KNOWS SHE IS AT THE HOSPITAL BUT UNSURE NAME OR TIME. EASILY REORIENTED TO PLACE AND TIME AND REMAINS PLEASANTLY CONFUSED. WAS ACTIVE AND UP WITH ASSITANCE TO BSC TO HAVE BM TODAY X3 AND IMMODIUM WAS ORDERED AND GIVEN THIS PM. PT HAS NO C/O PAIN OR DISCOMFORT VOICED AT THIS TIME. PT DID GET PRN ORDERS FOR ELEVATED BP AND GIVEN X1 IN THE PM FOR BP AND IMPROVED. NAD NOTED. ATE SMAL AMOUNT OF MEALS. AND SPOKE WITH SON THIS PM. WILL CONTINUE TO MONITOR IN CARE.
--- NOTE | 2021-09-04 04:15 | NUR ---
SHIFT SUMMARY PT AOX2-3 WITH INCREASED CONFUSION THROUGHOUT THE NIGHT THIS SHIFT. PT JUST THREW UP CLEAR LIQUIDS AFTER C/O OF A SORE THROAT EARLIER IN THE SHIFT. PT CLEAN AND DRY IN BED WITH NO S/S N/V AT THE MOMENT. PT MEDICATED PER EMAR THIS SHIFT, WILL CONTINUE TO MONITOR UNTIL REPORT IS GIVEN.
[2021-09-04 05:14] LABS: BASOPHILS ABSOLUTE AUTO 0.03 K/mm3 (0.00-0.23); BASOPHILS PERCENT AUTO 0 % (0-2); EOSINOPHILS ABSOLUTE AUTO 0.07 K/mm3 (0.00-0.68); EOSINOPHILS PERCENT AUTO 1 % (0-6); Hematocrit 33.2 % (33.0-51.0); Hemoglobin 10.9 g/dL (11.5-16.0); IMMATURE GRAN ABSOLUTE AUTO 0.03 K/mm3 (0.00-0.10); IMMATURE GRAN PERCENT AUTO 0 % (0-1); LYMPHOCYTES ABSOLUTE AUTO 1.08 K/mm3 (0.84-5.20); LYMPHOCYTES PERCENT AUTO 14 % (21-46); MONOCYTES PERCENT AUTO 12 % (4-13); Mean Corpuscular HGB 32.8 pg (26.0-34.0); Mean Corpuscular HGB Conc 32.8 g/dL (31.5-36.5); Mean Corpuscular Volume 100 fL (80-100); Mean Platelet Volume 10.8 fL (9.1-12.4); NEUTROPHILS ABSOLUTE AUTO 5.59 K/mm3 (1.96-9.15); NEUTROPHILS PERCENT AUTO 73 % (41-73); Platelet Count 234 K/mm3 (150-400); RDW Coefficient Variation 14.6 % (11.7-14.2); RDW Standard Deviation 53.3 fL (35.1-46.3); Red Blood Cell Count 3.32 M/mm3 (3.80-5.20)
[2021-09-04 05:45] LABS: Albumin, Blood 2.3 g/dL (3.4-5.0); Anion Gap 8 mmol/L (6-16); Blood Urea Nitrogen 57 mg/dL (8-24); Bun/Creatinine Ratio 56.4 (12.0-20.0); CO2, Blood 25 mmol/L (21-32); Calcium, Blood 7.7 mg/dL (8.5-10.1); Chloride, Blood 108 mmol/L (98-108); Creatinine, Blood 1.01 mg/dL (0.40-1.00); Glomerular Filtration Rate 52 (60-); Glucose, Blood 106 mg/dL (70-99); Magnesium, Blood 1.7 mg/dL (1.6-2.4); Phosphorus, Blood 1.9 mg/dL (2.5-4.9); Potassium, Blood 3.2 mmol/L (3.5-5.5); Sodium, Blood 141 mmol/L (136-145)
--- NOTE | 2021-09-04 18:41 | NUR ---
SHIFT SUMMARY PATIENT AAOX3 AND FORGETS LOCATION BUT EASILY REORIENTED TO PLACE AND TIME. PLEASANTLY CONFUSED. DID VISIT WITH HER GRANDSON AND HIS NEW TODAY AND REMEMBERED THAT THEY WERE LOOKING FOR A NEW HOUSE AND WHERE THEY WERE FROM. ASKES WHEN SHE WILL BE LEAVING TO RETURN TO HOME. NEW 2O G IV PLACED TO RIGHT ARM FOR ADDITIONAL MEDS TO INFUSE. NAD NOTED. BP WAS STILL ELEVATED ON TODAY AND MD AWARE. IV PRN APRESELINE WAS GIVEN THIS PM FOR BP OF 170'S AND DID COME DOWN AFTERWARDS TO 160'S. NO C/O PAIN, SOB, N/V OR DISCOMFORT VOICED AT THIS TIME. WILL CONTINUE TO MONITOR IN CARE UNTIL ONCOMING NURSE ARRIVES.
[2021-09-05 05:40] LABS: Hematocrit 32.8 % (33.0-51.0); Hemoglobin 10.6 g/dL (11.5-16.0)
--- NOTE | 2021-09-05 06:27 | NUR ---
SHIFT SUMMARY PATIENT ALERT AND ORIENTED X2, VERY HARD OF HEARING. HAD NO COMPLAINTS OF PAIN OR SHORTNESS OF BREATH. NO ACUTE ISSUES NOTED OVERNIGHT. BED IN LOWEST POSITION WITH WHEELS LOCKED AND ALARM ON. CALL LIGHT WITHIN REACH. REPORT GIVEN TO ONCOMING RN.
[2021-09-05 06:57] LABS: Anion Gap 11 mmol/L (6-16); Blood Urea Nitrogen 36 mg/dL (8-24); Bun/Creatinine Ratio 37.2 (12.0-20.0); CO2, Blood 21 mmol/L (21-32); Calcium, Blood 7.4 mg/dL (8.5-10.1); Chloride, Blood 108 mmol/L (98-108); Creatinine, Blood 0.97 mg/dL (0.40-1.00); Glomerular Filtration Rate 54 (60-); Glucose, Blood 100 mg/dL (70-99); Magnesium, Blood 1.6 mg/dL (1.6-2.4); Phosphorus, Blood 2.4 mg/dL (2.5-4.9); Potassium, Blood 3.7 mmol/L (3.5-5.5); Sodium, Blood 140 mmol/L (136-145)
--- NOTE | 2021-09-05 18:17 | NUR ---
SHIFT SUMMARY PATIENT WAS MORE CONFUSED AND OFF ON TODAY COMPARED TO YESTERDAY. UNSURE OF WHERE SHE WAS AND KEPT TRYING TO GET OUT OF BED TO COOK OR CLEAN ROOM. DID VISIT WITH DAUGHTER AND SEEMED BETTER BUT RETURNED TO CONFUSION BASELINE AFTER SHE LEFT. HAD NO C/O PAIN, SOB OR DISCOMFORT VOICED ON TODAY. MADE MD ÓSCAR VALENTE AWARE OF PT BP BEING ELEVATED FOR LAST 3 DAYS AND REQUIRING PRN DOSE OF HYDRALAZINE DAILY. SHE DISCONTINUED NS ORDER AND STATED PT IS ON HOSPICE SO NOT TO WORRY MUCH ABOUT IT. PT BP DID GO DOWN SLIGHTLY. NAD NOTED. ONLY ATE A SMALL AMOUNT, MAYBE 25% OF MEALS AND NOTIFIED NUTRITION AND SHE ORDERED ENSURE WITH LUNCH AND DINNER. SHE DID DRINK THAT. HAD MED SIZE BM TODAY. UP TO CHAIR FOR DINNER. WILL CONTINUE TO MONITOR IN CARE UNTIL ONCOMING NURSE TAKES OVER SHIFT.
[2021-09-06 04:46] LABS: Hematocrit 29.2 % (33.0-51.0); Hemoglobin 9.5 g/dL (11.5-16.0)
--- NOTE | 2021-09-06 05:34 | NUR ---
SHIFT SUMMARY PATIENT ALERT AND ORIENTED X2. HAD NO COMPLAINTS OF PAIN OR SHORTNESS OF BREATH. PATIENT PLACED ON 2 LITERS OF O2 THIS MORNING DUE TO PATIENT SATING 85-88% ON ROOM AIR. BED IN LOWEST POSITION WITH WHEELS LOCKED AND ALARM ON. CALL LIGHT WITHIN REACH. REPORT GIVEN TO ONCOMING RN.
[2021-09-06 05:42] LABS: Albumin, Blood 1.8 g/dL (3.4-5.0); Anion Gap 8 mmol/L (6-16); Blood Urea Nitrogen 30 mg/dL (8-24); Bun/Creatinine Ratio 29.1 (12.0-20.0); CO2, Blood 23 mmol/L (21-32); Calcium, Blood 7.5 mg/dL (8.5-10.1); Chloride, Blood 111 mmol/L (98-108); Creatinine, Blood 1.03 mg/dL (0.40-1.00); Glomerular Filtration Rate 50 (60-); Glucose, Blood 91 mg/dL (70-99); Magnesium, Blood 1.5 mg/dL (1.6-2.4); Phosphorus, Blood 2.4 mg/dL (2.5-4.9); Potassium, Blood 3.4 mmol/L (3.5-5.5); Sodium, Blood 142 mmol/L (136-145)
--- NOTE | 2021-09-06 09:50 | NUR ---
NURSES NOTE UPON GETTING PATIENT UP TO CHAIR THIS AM SHE APPEARED SOB AND HARD TO CATCH HER BREATH. STATED I CANT BREATH. O2 SAT AT THE TIME WAS NOTED TO BE 85% ON RA AND PLACED ON O2 AT 2L BNC. SHE WAS SAT UP IN CHAIR WITH BACK STRAIGHT AND LOUD EXPIRATORY WHEEZES NOTED ON EXPIRATION AND TIGHTNESS. CALLED AND NOTIFIED DR MUSTAFA AND SHE PLACED ORDERS FOR CXR AND BREATHING TX. RESP THERAPY ON UNIT AND STATED WAS BETTER NOW AFTER SHE ARRIVED AND WAS BACK IN BED AND STATED DID NOT NEED BX TX. O2 SATS DID RETURN TO BASELINE OF 96% ON 2L AFTER IN BED RESTING. IV HYDRALAZINE GIVEN FOR BP OF 186 SBP. CHARGE NURSE AND KATE NEON SIGN MAKER AT BEDSIDE TO ARRANGE TRANSPORTATION HOME WITH HOSPICE ON TODAY. WILL CONTINUE TO MONITOR IN CARE.
[2021-09-06] MEDS ORDERED: VISBIOME 112.51 EACH PO (12:08)
[2021-09-06] MEDS ORDERED: CEPH250A PO (12:08)
[2021-09-06] MEDS ORDERED: LORA.5 PO (12:09)
[2021-09-06] MEDS ORDERED: MORP20L SL (12:09)
--- NOTE | 2021-09-06 15:04 | NUR ---
DISCHARGE HOME NOTE PATIENT IS AAOX3 AT THIS TIME AND ASKIND QUESTIONS ABOUT WHERE SHE IS GOING. INSTRUCTED SHE IS GOING TO NEW FACILITY AND HER SON ERIC IS THERE WAITING ON HER. IV 20 GAUGE IS REMOVED FROM THE RIGHT FOREARM AND LEFT AC AND BANDAIDES PLACED ON SITE. VSS. NAD NOTED. DIAPER CHANGED AND NEW PLACED. MEPALIX PLACED TO BOTH HEELS AND SACRUM AREA FOR PROTECTION. REPORT CALLED TO MARKELL SCHWAB AT [facility]. SHE DID NOT EAT LUNCH BUT DRUNK A ENSURE BEFORE TRANSFER. DID CALL AND NOTIFY SON AND DAUGHTER THAT SHE WAS IN THE MIDST OF TRANSFER
== END 2021-09-06 15:47 | disposition home or self-care (01) | DRG 682 ==
LOC: ER 14:14 → MEDS 16:38 → ERHOLD 16:38 → MEDS 20:17 → ENPENDDIS 09-06 11:48 → MEDS 09-06 15:47
PROVIDERS: Emergency Medicine; Internal Medicine Nephrology; ADMIT Family Medicine
DX: N17.9 Acute kidney failure, unspecified (principal); G92.8 Other toxic encephalopathy; J18.9 Pneumonia, unspecified organism; I13.0 Hypertensive heart and chronic kidney disease with heart failure and stage 1 through stage 4 chronic kidney disease, or unspecified chronic kidney disease; E87.2 Acidosis; N39.0 Urinary tract infection, site not specified; Z66 Do not resuscitate; E87.6 Hypokalemia; E83.42 Hypomagnesemia; B96.20 Unspecified Escherichia coli [E. coli] as the cause of diseases classified elsewhere; R19.7 Diarrhea, unspecified; E83.39 Other disorders of phosphorus metabolism; E86.9 Volume depletion, unspecified; E88.09 Other disorders of plasma-protein metabolism, not elsewhere classified; I50.9 Heart failure, unspecified; N18.30 Chronic kidney disease, stage 3 unspecified; J44.9 Chronic obstructive pulmonary disease, unspecified; E78.5 Hyperlipidemia, unspecified; F03.90 Unspecified dementia, unspecified severity, without behavioral disturbance, psychotic disturbance, mood disturbance, and anxiety; K21.9 Gastro-esophageal reflux disease without esophagitis; D63.1 Anemia in chronic kidney disease; M19.90 Unspecified osteoarthritis, unspecified site; I25.10 Atherosclerotic heart disease of native coronary artery without angina pectoris; N25.81 Secondary hyperparathyroidism of renal origin; I27.20 Pulmonary hypertension, unspecified; H91.90 Unspecified hearing loss, unspecified ear; Z96.642 Presence of left artificial hip joint; Z90.89 Acquired absence of other organs; Z88.0 Allergy status to penicillin; Z88.8 Allergy status to other drugs, medicaments and biological substances; Z91.09 Other allergy status, other than to drugs and biological substances; Z79.82 Long term (current) use of aspirin; Z79.899 Other long term (current) drug therapy; Z90.710 Acquired absence of both cervix and uterus; Z98.890 Other specified postprocedural states; Z85.828 Personal history of other malignant neoplasm of skin
CPT/HCPCS: 0097U; 36415; 51701; 70450; 71045; 76770; 80048; 80053; 80069; 81001; 83735; 85014; 85018; 85025; 87077; 87086; 87186; 92526; 92610; 94760; 96374-59; 97110; 97162; 97166; 97530; 97535; 99285-25; A9270; J0360; J0696; J1644; J3475; J3480; J7030; J7050; J7060; J7070